=== PATIENT | male | born 1955 | race Caucasian/White ===

== ENCOUNTER 2021-04-25 17:33 | Emergency (ER) | payer OTHER, MEDICAID | END 2021-04-25 18:48 | disposition home or self-care (01) | LOC: BURERS 17:33 | DX: S16.1XXA Strain of muscle, fascia and tendon at neck level, initial encounter (principal); S39.012A Strain of muscle, fascia and tendon of lower back, initial encounter; M51.36 Other intervertebral disc degeneration, lumbar region; V43.52XA Car driver injured in collision with other type car in traffic accident, initial encounter | CPT/HCPCS: 70450; 72125; 72131 ==

== ENCOUNTER 2021-05-09 23:11 | Emergency (ER) | payer MEDICARE, MEDICAID ==
[2021-05-09] MEDS ORDERED: Silver Nitrate Application 1 EACH ONE ×2 (23:30→23:40)
[2021-05-09] MEDS ORDERED: Boostrix 0.5 ML (Tdap) VIAL ONE (23:41)
== END 2021-05-09 23:52 | disposition home or self-care (01) ==
LOC: BURERS 23:11
DX: S90.811A Abrasion, right foot, initial encounter (principal); L84 Corns and callosities; E03.9 Hypothyroidism, unspecified; E78.00 Pure hypercholesterolemia, unspecified; I10 Essential (primary) hypertension; W26.8XXA Contact with other sharp object(s), not elsewhere classified, initial encounter; Z23 Encounter for immunization
CPT/HCPCS: 12001; 90471; 90715

== ENCOUNTER 2021-08-15 07:54 | Emergency (ER) | payer MEDICARE, OTHER ==
[2021-08-15 08:36] LABS: #Eosinphils 0.2 thou/uL (0.0-0.7); #Lymphocytes 1.8 thou/uL (1.20-3.40); #Monocytes 0.8 thou/uL (0.11-0.59); #Neutrophils 11.7 thou/uL (1.40-6.50); %Basophils 0.3 % (0.0-1.0); %Eosinophils 1.2 % (0.0-10.0); %Lymphocytes 12.3 % (21.0-51.0); %Monocytes 5.3 % (0.0-10.0); %Neutrophils 80.8 % (42.0-75.0); Hemoglobin 15.5 g/dL (14.0-18.0); Mean Corpuscular Hemoglobin 28.6 pg (27.0-31.0); Mean Platelet Volume 10.9 fL (7.4-10.4); Platelet Count 226 thou/uL (130-400); RBC Distribution Width 11.9 % (11.5-14.5); Red Blood Cell (RBC) Count 5.43 mill/uL (4.70-6.10); White Blood Cell (WBC) Count 14.5 thou/uL (4.8-10.8)
[2021-08-15] MEDS ORDERED: Pantoprazole 40 MG VIAL ONE (08:52)
[2021-08-15] MEDS ORDERED: Mag-Al Plus 1200 MG/1200 MG/120 MG/30 ML UDCUP ONE (08:52)
[2021-08-15] MEDS ORDERED: Lidocaine Viscous Sol 2% 15 ml UD Cup ONE (08:52)
[2021-08-15 08:55] LABS: ALT (SGPT) 19 U/L (8-55); AST (SGOT) 14 U/L (5-34); Albumin 3.9 g/dL (3.4-4.8); Alkaline Phosphatase 104 U/L (40-110); Anion Gap 16 mmol/L (10-20); BUN (Urea Nitrogen) 11 mg/dL (8.4-25.7); Calc. Creatinine Clearance 0 mL/min (70-130); Calcium 9.1 mg/dL (7.8-10.44); Carbon Dioxide 22 mmol/L (23-31); Chloride 102 mmol/L (98-107); Glucose 178 mg/dL (80-115); Lipase 21 U/L (8-78); Potassium 3.5 mmol/L (3.5-5.1); Protein, Total 6.9 g/dL (5.8-8.1); Sodium 136 mmol/L (136-145)
[2021-08-15 09:46] LABS: Bilirubin Negative (Negative); Blood, Urine Negative (Negative); Clarity Clear (Clear); Glucose, Urine (Dipstick) Negative (Negative); Ketone, Urine Negative (Negative); Leukocyte Negative (Negative); Nitrite Negative (Negative); Protein, Urine (Dipstick) Negative (Neg-Trace); Urobilinogen 0.2 mg/dL (Less than 2); pH, Urine 5.5 (5.0-9.0)
== END 2021-08-15 09:49 | disposition home or self-care (01) ==
LOC: BURERS 07:54
DX: A08.4 Viral intestinal infection, unspecified (principal); E86.9 Volume depletion, unspecified; E03.9 Hypothyroidism, unspecified; E78.00 Pure hypercholesterolemia, unspecified; I10 Essential (primary) hypertension; Z79.899 Other long term (current) drug therapy; Z20.822 Contact with and (suspected) exposure to COVID-19
CPT/HCPCS: 71045; 80053; 81003; 83605; 83690; 84484; 85025; 87804 ×2; 96361; 96374; 99284; U0003; U0005; 36415; C9113

== ENCOUNTER 2022-01-03 12:02 | Emergency (ER) | payer MEDICARE, OTHER ==
[2022-01-03] MEDS ORDERED: Bacitracin 1 PK ONE (12:17)
== END 2022-01-03 12:28 | disposition home or self-care (01) ==
LOC: BURERS 12:02
DX: S61.511A Laceration without foreign body of right wrist, initial encounter (principal); E03.9 Hypothyroidism, unspecified; E78.00 Pure hypercholesterolemia, unspecified; I10 Essential (primary) hypertension; X58.XXXA Exposure to other specified factors, initial encounter
CPT/HCPCS: 99282

== ENCOUNTER 2022-02-06 16:19 | Emergency (ER) | payer MEDICARE, OTHER ==
[2022-02-06] MEDS ORDERED: Dexamethasone 4 MG TAB ONE (17:41)
[2022-02-06] MEDS ORDERED: Ondansetron ODT 4 MG TAB ONE (17:41)
== END 2022-02-06 17:44 | disposition home or self-care (01) ==
LOC: BURERS 16:19
DX: J06.9 Acute upper respiratory infection, unspecified (principal); E03.9 Hypothyroidism, unspecified; E78.00 Pure hypercholesterolemia, unspecified; I10 Essential (primary) hypertension
CPT/HCPCS: 99283; J8540; Q0162

== ENCOUNTER 2023-10-24 15:04 | Emergency (ER) | payer MEDICARE, OTHER ==
[2023-10-24] MEDS ORDERED: Ibuprofen 800 MG TAB ONE (15:13)
== END 2023-10-24 16:14 | disposition home or self-care (01) ==
LOC: BURERS 15:04
DX: S83.91XA Sprain of unspecified site of right knee, initial encounter (principal); S93.401A Sprain of unspecified ligament of right ankle, initial encounter; I10 Essential (primary) hypertension; W20.8XXA Other cause of strike by thrown, projected or falling object, initial encounter